=== PATIENT | male | born 1930 | race Caucasian/White ===

== ENCOUNTER → 2017-07-09 | Outpatient (CLI) | payer OTHER ==
[~2017-07-09] MED LIST: REGADENOSON 0.4 MG/5 ML SYRINGE ONE
== END | disposition home or self-care (01) ==
LOC: CFH 07:43
PROVIDERS: ATTEND Internal Medicine Cardiovascular Disease
DX: Z01.810 Encounter for preprocedural cardiovascular examination (principal); I25.10 Atherosclerotic heart disease of native coronary artery without angina pectoris
CPT/HCPCS: 78452; 93017; A9502; J2785

== ENCOUNTER 2018-12-09 07:36 | Outpatient (CLI) | payer MEDICARE ==
[~2018-12-09 07:36] MED LIST changes: +ALLO100T30 PO; +AMLO-150 PO; +ASPI-496 PO; +ASPI81TA45 PO; +ATOR-2 PO; +CARV-39 PO; +CELE200C PO; +DOCU-131 PO; +GLIP5TAB10 PO; +LEVO100T5 PO; +LOSA100T14 PO; +ONDA4TAB10 PO; +OXYC5TAB2 PO; -REGADENOSON 0.4 MG/5 ML SYRINGE ONE; +TRAM50TA2 PO
[2018-12-09] MEDS ORDERED: REGADENOSON 0.4 MG/5 ML SYRINGE ONE (07:37)
== END 2018-12-09 23:59 | disposition home or self-care (01) ==
LOC: CFH 07:36
PROVIDERS: ATTEND Internal Medicine Cardiovascular Disease
DX: I08.0 Rheumatic disorders of both mitral and aortic valves (principal); I10 Essential (primary) hypertension; I25.10 Atherosclerotic heart disease of native coronary artery without angina pectoris
CPT/HCPCS: 78452; 93017; 93306; A9502; J2785

== ENCOUNTER → 2019-01-26 | Outpatient (CLI) | payer MEDICARE ==
[2019-01-26 14:11] LABS: BASOPHILS # (AUTO) 0.03 x10^3/uL (0-0.1); BASOPHILS % (AUTO) 0 % (0-1); EOSINOPHILS # (AUTO) 0.22 x10^3/uL (0-0.4); EOSINOPHILS % (AUTO) 3 % (1-7); LYMPHOCYTES # (AUTO) 1.82 x10^3/uL (1-3.4); LYMPHOCYTES % (AUTO) 26 % (22-44); MD NO; MEAN CORPUSCULAR HEMOGLOBIN 27.4 pg (27.5-34.5); MEAN CORPUSCULAR HGB CONC 32.4 g/dL (33.2-36.2); MEAN CORPUSCULAR VOLUME 84.6 fL (81-97); MEAN PLATELET VOLUME 8.6 fL (7.4-10.4); MONOCYTES # (AUTO) 0.56 x10^3/uL (0.2-0.8); MONOCYTES % (AUTO) 8 % (2-9); NEUTROPHILS % (AUTO) 63 % (42-75); PLATELET COUNT 157 x10^3/uL (130-400); RED BLOOD COUNT 4.46 x10^6/uL (4.38-5.82); RED CELL DISTRIBUTION WIDTH 18.1 % (9.4-14.8)
[2019-01-26 14:22] LABS: ALANINE AMINOTRANSFERASE 23 U/L (12-78); ALBUMIN 3.8 g/dL (3.4-5.0); ANION GAP 7 mmol/L (5-15); CALCIUM 9.4 mg/dL (8.5-10.1); CHLORIDE 112 mmol/L (98-107); CREATININE 1.36 mg/dL (0.7-1.3)
[2019-01-26 14:23] LABS: INTERNATIONAL NORMALIZED RATIO 1.1 (0.93-1.1); PROTHROMBIN TIME 11.5 Seconds (9.6-11.5)
[2019-01-26 14:24] LABS: ALKALINE PHOSPHATASE 126 U/L (45-117); BILIRUBIN,TOTAL 0.6 mg/dL (0.2-1.0); TOTAL PROTEIN 7.5 g/dL (6.4-8.2)
== END | disposition home or self-care (01) ==
LOC: STAR 12:21
PROVIDERS: ATTEND Orthopaedic Surgery
DX: Z01.818 Encounter for other preprocedural examination (principal); M54.31 Sciatica, right side; M51.36 Other intervertebral disc degeneration, lumbar region; M16.0 Bilateral primary osteoarthritis of hip; Z87.891 Personal history of nicotine dependence
CPT/HCPCS: 36415; 80053; 83036; 85025; 85610; 85730; 87081; 87389; 93005